=== PATIENT | male | born 1995 | race Caucasian/White ===

== ENCOUNTER 2018-02-21 22:38 | Emergency (ER) | payer OTHER ==
[2018-02-21 23:45] LABS: Absolute Lymphocytes (CBC) 1.9 K/uL (0.7-4.9); Absolute Monocytes 0.8 K/uL (0.1-1.3); Absolute Neutrophil 5.2 K/uL (1.8-8.0); Basophils % 0.4 % (0-1.3); Eosinophils % 1.8 % (0-4.4); Hematocrit 40.1 % (39.6-49.0); Lymphocytes % 23.4 % (15.3-44.8); MCV 92.2 fL (80-100); MPV 8.6 fL (7.6-11.3); Monocytes % 9.8 % (3.3-12.3); RBC Red Blood Cell Count 4.35 M/uL (4.33-5.43)
[2018-02-21] MEDS ORDERED: PROMETHAZINE 25 MG/ML VIAL ONE (23:46)
[2018-02-21] MEDS ORDERED: NA CHLORIDE 0.9% 1,000 ML ONE (23:46)
[2018-02-21] MEDS ORDERED: FAMOTIDINE 20 MG/2 ML VIAL IV ONE (23:46)
[2018-02-22 00:09] LABS: Albumin 4.1 g/dL (3.4-5.0); Bilirubin Direct 0.1 mg/dL (0-0.2); Bilirubin Total 0.3 mg/dL (0.2-1.0); Potassium 3.2 mmol/L (3.5-5.1); T3 Free 2.14 pg/mL (2.18-3.98); Thyroid Stimulating Hormone 3.55 uIU/mL (0.360-3.740)
[2018-02-22] MEDS ORDERED: HYDROCORTISONE SUC 100 MG INJ ONE (00:23)
[2018-02-22] MEDS ORDERED: POTASSIUM 25 MEQ EFFERV TAB ONE (01:17)
[2018-02-22] MEDS ORDERED: D5 0.9 NS 1,000 ML IV ONE ×2 (01:17→02:14)
[2018-02-22 01:52] LABS: Urine Blood NEGATIVE (NEG); Urine Glucose NEGATIVE (NEG); Urine Protein NEGATIVE (NEG); Urine pH 7.5 (5.0-7.0)
--- NOTE | 2018-02-22 01:53 | ER ---
Nurse's Notes [facility] Name: Ronald Caicedo Age: 22 yrs Sex: Male : 1995 Arrival Date: 02/21/2018 Time: 22:40 Bed 25 Private MD: Lizzie Doran Diagnosis: Nausea and vomiting-Intractable;Adrenal Insufficiency;Weakness-General Presentation: 02/21 22:54 Presenting complaint: Mother states: "he has a an extensive medical history, he has kr2 adrenal insufficiency and today has been vomiting, can't keep anything down, no fever, sore throat for about a week. His creatinine last week was higher than usual. Its normal for his heart rate to be in the 40's". Transition of care: patient was not received from another setting of care. Onset of symptoms was February 21, 2018. Risk Assessment: Do you want to hurt yourself or someone else? Patient reports no desire to harm self or others. Initial Sepsis Screen: Does the patient meet any 2 criteria? No. Patient's initial sepsis screen is negative. Does the patient have a suspected source of infection? No. Patient's initial sepsis screen is negative. Care prior to arrival: Mother states, "I gave him his cortisone like he is supposed to get". 22:54 Method Of Arrival: Ambulatory [facility] 22:54 Acuity: KEMI 3 kr2 Triage Assessment: 23:05 General: Appears in no apparent distress. comfortable, well groomed, well developed, kr2 Behavior is calm, cooperative, appropriate for age. Pain: Denies pain. EENT: Oral mucosa is moist. Neuro: Level of Consciousness is awake, alert, obeys commands, Oriented to person, place, time, situation. Cardiovascular: Capillary refill < 3 seconds in bilateral fingers Patient's skin is warm and dry. Respiratory: Airway is patent Respiratory effort is even, unlabored, Respiratory pattern is regular, symmetrical. GI: Abdomen is flat, non-distended, Bowel sounds present X 4 quads. Abd is soft and non tender X 4 quads. Reports nausea, vomiting, Patient currently denies diarrhea. : Denies burning with urination. Derm: Skin is intact, is healthy with good turgor, Skin is pink, warm \\T\\ dry. Musculoskeletal: Circulation, motion, and sensation intact. Historical: - Allergies: 23:02 Inderal; kr2 23:02 Klonopin; kr2 23:02 Zofran; kr2 - Home Meds: 23:02 Lamictal Oral [Active]; Whitmer Carbonate Oral [Active]; Diamox Sequels Oral [Active]; kr2 levothyroxine 125 mcg tab 1 tab once daily [Active]; Topamax Oral [Active]; Intuniv ER oral oral [Active]; Xenazine oral oral [Active]; primidone Oral [Active]; Cortisone Acetate Oral [Active]; - PMHx: 23:02 adrenal insufficiency; epilepsy; Hypothyroidism; Bipolar disorder; Left ventricular kr2 hypertrophy; Heart Murmur; Selective IgA; Renal injury; - PSHx: 23:02 Ear Tubes; kr2 - Immunization history:: Adult Immunizations up to date. - Social history:: Smoking status: Patient/guardian denies using tobacco. - Ebola Screening: : No symptoms or risks identified at this time. Screenin:05 Abuse screen: Denies threats or abuse. Denies injuries from another. Nutritional kr2 screening: No deficits noted. Tuberculosis screening: No symptoms or risk factors identified. Fall Risk None identified. Assessment: 02/22 00:03 Reassessment: See triage assessment. GI: Abdomen is flat, non-distended, Bowel sounds kr2 present X 4 quads. Abd is soft and non tender X 4 quads. Reports nausea, vomiting, Patient currently denies diarrhea. 01:00 General: Appears uncomfortable, slender, Behavior is calm, cooperative, appropriate for fc age, quiet. Pain: Denies pain. Neuro: Level of Consciousness is awake, alert, obeys commands, Oriented to person, place, time, situation. Cardiovascular: No deficits noted. Rhythm is sinus bradycardia with PACs. Respiratory: No deficits noted. GI: Abdomen is flat, non-distended, Bowel sounds present X 4 quads. Abd is soft and non tender X 4 quads. Reports nausea and vomiting upon arrival but it has gotten better. : No deficits noted. EENT: No deficits noted. Derm: Skin is pink, warm \\T\\ dry. Musculoskeletal: Circulation, motion, and sensation intact. Capillary refill < 3 seconds, Range of motion: intact in all extremities. 01:30 Reassessment: No changes from previously documented assessment. Patient and/or family fc updated on plan of care and expected duration. Pain level reassessed. Patient is alert, oriented x 3, equal unlabored respirations, skin warm/dry/pink. Mother notified of provider attempting to transfer pt to [facility]. 02:15 Reassessment: No changes from previously documented assessment. Patient and/or family fc updated on plan of care and expected duration. Pain level reassessed. Patient is alert, oriented x 3, equal unlabored respirations, skin warm/dry/pink. Pt is awaiting ambulance for transfer to [facility]. 02:30 General: Appears comfortable, Behavior is calm, cooperative, quiet. Pain: Denies pain. fc Neuro: Level of Consciousness is awake, alert, obeys commands, Oriented to person, place, time, situation, Medical Affairs Director are equal bilaterally Moves all extremities. Full function Pt states that he is weak overall at this time. Gait is unsteady, which mother states is normal for pt. Speech is normal, Facial symmetry appears normal, Reports weakness overall. Cardiovascular: No deficits noted. Denies chest pain, shortness of breath. Respiratory: Breath sounds are clear bilaterally. Denies cough, shortness of breath. GI: Abdomen is flat, non-distended, Patient currently denies abdominal pain, nausea, vomiting. : No deficits noted. EENT: No deficits noted. Derm: Skin is pink, warm \\T\\ dry. Musculoskeletal: Circulation, motion, and sensation intact. Capillary refill < 3 seconds, Range of motion: intact in all extremities. 02:52 Reassessment: No changes from previously documented assessment. Patient and/or family fc updated on plan of care and expected duration. Pain level reassessed. Patient is alert, oriented x 3, equal unlabored respirations, skin warm/dry/pink. Mother at bedside. Awaiting EMS for transport. 03:20 Reassessment: [facility] here to transport pt. Report given to Clarissa and pt loaded to their stretcher. Vital Signs: 02/21 23:02 BP 117 / 75; Pulse 44; Resp 18; Temp 98.7; Pulse Ox 97% ; Weight 77.11 kg; Height 6 ft. kr2 (182.88 cm); Pain 0/10; 02/22 00:04 BP 110 / 63; Pulse 51; Resp 18; Pulse Ox 100% ; kr2 01:00 BP 113 / 65; Pulse 71; Resp 18; Pulse Ox 100% on R/A; Pain 0/10; fc 01:39 BP 118 / 65; Pulse 65; Resp 18; Temp 98.0(O); Pulse Ox 100% on R/A; Pain 0/10; fc 02:15 BP 106 / 59; Pulse 50; Resp 20; Temp 98.0(O); Pulse Ox 100% on R/A; Pain 0/10; fc 03:00 BP 108 / 63; Pulse 50; Resp 18; Temp 97.9(O); Pulse Ox 99% on R/A; Pain 0/10; fc 02/21 23:02 Body Mass Index 23.06 (77.11 kg, 182.88 cm) kr2 ED Course: 02/21 22:40 Patient arrived in ED. al2 22:42 Lizzie Doran MD is Private Physician. al2 22:54 Dalila Carmichael, FUNMI is Primary Nurse. kr2 22:57 Triage completed. kr2 23:01 John Evans PA is PHCP. cp 23:01 John Gil MD is Attending Physician. cp 23:07 Arm band placed on left wrist. kr2 23:07 Patient has correct armband on for positive identification. Bed in low position. Call kr2 light in reach. Side rails up X 1. Adult w/ patient. residential monitor on. Pulse ox on. NIBP on. Door closed. Warm blanket given. Head of bed elevated. 23:15 Inserted saline lock: 20 gauge in left antecubital area, using aseptic technique. Blood kr2 collected. 02/22 01:57 No provider procedures requiring assistance completed. Patient transferred, IV remains fc in place. Administered Medications: 02/21 23:40 Drug: Phenergan 25 mg Route: IVP; Site: left antecubital; kr2 02/22 00:16 Follow up: Response: No adverse reaction kr2 02/21 23:40 Drug: NS 0.9% 1000 ml Route: IV; Rate: 1 bolus; Site: left antecubital; kr2 02/22 01:05 Follow up: Response: No adverse reaction; No change in condition; IV Status: Completed fc infusion; IV Intake: 1000ml 02/21 23:40 Drug: Pepcid 20 mg Route: IVP; Site: left antecubital; kr2 02/22 00:16 Follow up: Response: No adverse reaction kr2 00:22 Drug: Solu-CORTEF 100 mg Route: IVP; Site: left antecubital; fc 01:04 Follow up: Response: No adverse reaction; No change in condition fc 01:20 Drug: Potassium Effervescent Tablet 50 mEq Route: PO; bb 01:41 Follow up: Response: No adverse reaction; No change in condition fc 01:20 Drug: D5-NS 1000 ml Route: IV; Rate: bolus; Site: left antecubital; bb 03:19 Follow up: Response: No adverse reaction; No change in condition; IV Status: Infusion fc continued upon transfer; IV Intake: 1125ml Intake: 01:05 IV: 1000ml; Total: 1000ml. fc 03:19 IV: 1125ml; Total: 2125ml. Outcome: 01:53 ER care complete, transfer ordered by MD. 02:00 Transferred by ground EMS to [facility], Transfer form completed. X-rays fc sent w/ patient. Note: report given to Beckie CHOUDHARY in ER 02:00 Condition: good 02:00 Discharge instructions given to patient, family, Instructed on the need for transfer, Demonstrated understanding of instructions. 03:31 Patient left the ED. Signatures: Adrianne Osei RN RN Stacey Short RN RN bb John Evans PA PA Dalila Carmichael RN RN kr2 Ameena Hilton2 Corrections: (The following items were deleted from the chart) 02/21 23:05 22:54 Presenting complaint: Mother states: "he has a an extensive medical history, he kr2 has adrenal insufficiency and today has been vomiting, can't keep anything down, no fever, sore throat for about a week. His creatinine last week was higher than usual" kr2 02/22 00:14 00:04 BP 100 / 55; Pulse 51bpm; Resp 18bpm; Pulse Ox 100%; kr2 kr2
--- NOTE | 2018-02-22 01:53 | EDPHYS ---
Physician Documentation [facility] Name: Ronald Caicedo Age: 22 yrs Sex: Male : 1995 Arrival Date: 02/21/2018 Time: 22:40 Bed 25 Private MD: Lizzie Doran ED Physician John Gil HPI: 02/21 23:20 This 22 yrs old Male presents to ER via Ambulatory with complaints of cp Vomiting, General Weakness, ADRENALINE DIFF. 23:20 The patient presents to the emergency department with nausea, that is moderate, cp vomiting, that is continuous. 23:20 Onset: The symptoms/episode began/occurred today. Possible causes: unknown. Associated cp signs and symptoms: Pertinent negatives: abdominal pain, constipation, diarrhea, fever, GI bleeding, chest pain. Severity of symptoms: in the emergency department the symptoms are unchanged despite home interventions. Historical: - Allergies: 23:02 Inderal; kr2 23:02 Klonopin; kr2 23:02 Zofran; kr2 - Home Meds: 23:02 Lamictal Oral [Active]; Berino Carbonate Oral [Active]; Diamox Sequels Oral [Active]; kr2 levothyroxine 125 mcg tab 1 tab once daily [Active]; Topamax Oral [Active]; Intuniv ER oral oral [Active]; Xenazine oral oral [Active]; primidone Oral [Active]; Cortisone Acetate Oral [Active]; - PMHx: 23:02 adrenal insufficiency; epilepsy; Hypothyroidism; Bipolar disorder; Left ventricular kr2 hypertrophy; Heart Murmur; Selective IgA; Renal injury; - PSHx: 23:02 Ear Tubes; kr2 - Immunization history:: Adult Immunizations up to date. - Social history:: Smoking status: Patient/guardian denies using tobacco. - Ebola Screening: : No symptoms or risks identified at this time. ROS: 23:20 Constitutional: Positive for poor PO intake, Negative for body aches, chills, fever. cp 23:20 Eyes: Negative for injury, pain, redness, and discharge. cp 23:20 ENT: Negative for drainage from ear(s), ear pain, sore throat, difficulty swallowing, difficulty handling secretions. 23:20 Cardiovascular: Negative for chest pain, edema, palpitations. 23:20 Respiratory: Negative for cough, shortness of breath, wheezing. 23:20 Abdomen/GI: Positive for nausea, vomiting, Negative for abdominal pain, diarrhea, constipation, hematemesis, black/tarry stool, rectal bleeding. 23:20 : Negative for urinary symptoms. 23:20 Skin: Negative for cellulitis, rash. 23:20 Neuro: Positive for general weakness, Negative for altered mental status, headache, seizure activity. 23:20 All other systems are negative. Exam: 23:27 Constitutional: The patient appears in no acute distress, alert, awake, non-toxic, well cp developed, well nourished. 23:27 Head/Face: Normocephalic, atraumatic. Eyes: Pupils equal round and reactive to light, cp extra-ocular motions intact. Lids and lashes normal. Conjunctiva and sclera are non-icteric and not injected. Cornea within normal limits. Periorbital areas with no swelling, redness, or edema. ENT: Nares patent. No nasal discharge, no septal abnormalities noted. Tympanic membranes are normal and external auditory canals are clear. Oropharynx with no redness, swelling, or masses, exudates, or evidence of obstruction, uvula midline. Mucous membranes moist. Neck: Trachea midline, no thyromegaly or masses palpated, and no cervical lymphadenopathy. Supple, full range of motion without nuchal rigidity, or vertebral point tenderness. No Meningismus. Chest/axilla: Normal chest wall appearance and motion. Nontender with no deformity. No lesions are appreciated. 23:27 Cardiovascular: Rate: bradycardic, Rhythm: regular, Edema: is not appreciated, JVD: is not appreciated. 23:27 Respiratory: the patient does not display signs of respiratory distress, Respirations: normal, no use of accessory muscles, no retractions, no splinting, no tachypnea, labored breathing, is not present, Breath sounds: are clear throughout, no decreased breath sounds, no stridor, no wheezing. 23:27 Abdomen/GI: Inspection: abdomen appears normal, Bowel sounds: active, all quadrants, Palpation: abdomen is soft and non-tender, in all quadrants, rebound tenderness, is not appreciated, voluntary guarding, is not appreciated, involuntary guarding, is not appreciated. 23:27 Back: pain, is absent, ROM is normal. 23:27 Skin: cellulitis, is not appreciated, no rash present. 23:27 Neuro: Orientation: to person, place \T\ time. Mentation: able to follow commands, slow to respond, Cerebellar function: is grossly normal, Motor: moves all fours, strength is normal, Sensation: is normal. 23:30 ECG was reviewed by the Attending Physician. Vital Signs: 23:02 BP 117 / 75; Pulse 44; Resp 18; Temp 98.7; Pulse Ox 97% ; Weight 77.11 kg; Height 6 ft. kr2 (182.88 cm); Pain 0/10; 02/22 00:04 BP 110 / 63; Pulse 51; Resp 18; Pulse Ox 100% ; kr2 01:00 BP 113 / 65; Pulse 71; Resp 18; Pulse Ox 100% on R/A; Pain 0/10; fc 01:39 BP 118 / 65; Pulse 65; Resp 18; Temp 98.0(O); Pulse Ox 100% on R/A; Pain 0/10; fc 02:15 BP 106 / 59; Pulse 50; Resp 20; Temp 98.0(O); Pulse Ox 100% on R/A; Pain 0/10; fc 03:00 BP 108 / 63; Pulse 50; Resp 18; Temp 97.9(O); Pulse Ox 99% on R/A; Pain 0/10; fc 02/21 23:02 Body Mass Index 23.06 (77.11 kg, 182.88 cm) kr2 MDM: 02/21 23:01 Patient medically screened. 02/22 00:00 Differential diagnosis: gastritis, appendicitis, viral gastroenteritis, cp gastroenteritis, dehydration. 01:00 Data reviewed: vital signs, nurses notes, lab test result(s), EKG, and as a result, [facility] will transfer patient. 01:00 Test interpretation: by ED physician or midlevel provider: ECG. 02/21 23:17 Order name: Basic Metabolic Panel; Complete Time: 00:14 02/22 01:26 Interpretation: Normal except: K 3.2; CL 110; GFR 70; CA 8.4. 02/21 23:17 Order name: CBC with Diff; Complete Time: 00:14 02/21 23:17 Order name: Creatinine for Radiology; Complete Time: 00:14 02/21 23:17 Order name: Hepatic Function; Complete Time: 00:14 02/22 01:39 Interpretation: AST 14. cp 02/21 23:17 Order name: Lipase; Complete Time: 00:14 cp 02/21 23:17 Order name: Berino; Complete Time: 00:17 cp 02/21 23:17 Order name: TSH; Complete Time: 00:14 cp 02/21 23:17 Order name: T3 Free; Complete Time: 00:14 cp 02/22 01:36 Order name: Urine Dipstick--Ancillary (enter results); Complete Time: 01:55 mw2 02/22 01:55 Interpretation: Normal except: UPH 7.5. cp 02/21 23:17 Order name: IV Saline Lock; Complete Time: 00:13 cp 02/21 23:17 Order name: Labs collected and sent; Complete Time: 00:13 cp 02/21 23:17 Order name: EKG; Complete Time: 23:18 cp 02/21 23:17 Order name: EKG - Nurse/Tech; Complete Time: 23:27 cp 02/21 23:17 Order name: Urine Dipstick-Ancillary (obtain specimen); Complete Time: 01:42 cp EC/11 23:30 Rate is 45 beats/min. Rhythm is regular. TN interval is prolonged at 212 msec. QRS cp interval is prolonged at 116 msec. QT interval is normal. Interpreted by me. Reviewed by me. Administered Medications: 23:40 Drug: Phenergan 25 mg Route: IVP; Site: left antecubital; 2 02/22 00:16 Follow up: Response: No adverse reaction [facility] 02/21 23:40 Drug: NS 0.9% 1000 ml Route: IV; Rate: 1 bolus; Site: left antecubital; kr2 02/22 01:05 Follow up: Response: No adverse reaction; No change in condition; IV Status: Completed infusion; IV Intake: 1000ml 02/21 23:40 Drug: Pepcid 20 mg Route: IVP; Site: left antecubital; kr2 02/22 00:16 Follow up: Response: No adverse reaction 2 00:22 Drug: Solu-CORTEF 100 mg Route: IVP; Site: left antecubital; fc 01:04 Follow up: Response: No adverse reaction; No change in condition 01:20 Drug: Potassium Effervescent Tablet 50 mEq Route: PO; bb 01:41 Follow up: Response: No adverse reaction; No change in condition fc 01:20 Drug: D5-NS 1000 ml Route: IV; Rate: bolus; Site: left antecubital; bb 03:19 Follow up: Response: No adverse reaction; No change in condition; IV Status: Infusion fc continued upon transfer; IV Intake: 1125ml Disposition: 09:39 Co-signature as Attending Physician, John Gil MD I agree with the assessment and [facility] plan of care. Disposition: 02/22/18 01:53 Transfer ordered to [facility]. Diagnosis are Nausea and vomiting - Intractable, Adrenal Insufficiency, Weakness - General. - Reason for transfer: Higher level of care. - Accepting physician is DR Keenan. - Condition is Stable. - Problem is new. - Symptoms have improved. Signatures: Dispatcher [employer] [facility] John Gil MD MD cha Chretien, Felicia, RN RN fc Ballard, Brenda, RN RN bb Page, Corey, PA PA Dalila Carmichael RN RN kr2 Corrections: (The following items were deleted from the chart) 01:15 01:13 ECG was reviewed by the Attending Physician. [facility] 01:15 01:13 Rate is 45 beats/min. Rhythm is regular. TN interval is prolonged at 212 msec. cp QRS interval is prolonged at 116 msec. QT interval is normal. Interpreted by me. Reviewed by me. cp 01:26 00:17 Normal except: K 3.2; CL 110; GFR 70. cp 01:53 00:17 Influenza Screen (A \T\ B)+BA.LAB.BRZ ordered. [facility] 01:53 01:53 02/22/2018 01:53 Transfer ordered to [facility]. cp Diagnosis is Nausea and vomiting - Intractable; Adrenal Insufficiency. Reason for transfer: Higher level of care. Accepting physician is DR Keenan. Condition is Stable. Problem is new. Symptoms have improved. cp 03:31 01:53 02/22/2018 01:53 Transfer ordered to [facility]. fc Diagnosis is Nausea and vomiting - Intractable; Adrenal Insufficiency; Weakness - General. Reason for transfer: Higher level of care. Accepting physician is DR Keenan. Condition is Stable. Problem is new. Symptoms have improved. cp
[2018-02-22 03:42] VITALS: BP 108/63; TEMP 97.9; O2SAT 99
--- NOTE | 2018-02-22 08:12 | EKG ---
Test Date: 2018-02-21 Test Time: 23:24:46 Waiter/Waitress Economy Class: HARJIT MEASUREMENT RESULTS: Intervals: Rate: 45 GA: 212 QRSD: 116 QT: 466 QTc: 403 [place]: P: 39 GA: 212 QRS: 38 T: 62 INTERPRETIVE STATEMENTS: Sinus bradycardia with sinus arrhythmia with 1st degree AV block Incomplete right bundle branch block Borderline ECG Compared to ECG 09/08/2016 15:08:16 First degree AV block now present Incomplete right bundle-branch block now present Electronically Signed On 02-22-18 08:11:32 CDT by Mason Chong
== END 2018-02-22 03:31 | disposition designated cancer center or children's hospital (05) ==
LOC: ER 22:38
DX: E27.40 Unspecified adrenocortical insufficiency (principal); R53.1 Weakness; E03.9 Hypothyroidism, unspecified; F31.9 Bipolar disorder, unspecified; R01.1 Cardiac murmur, unspecified; G40.909 Epilepsy, unspecified, not intractable, without status epilepticus; Z88.8 Allergy status to other drugs, medicaments and biological substances
CPT/HCPCS: 36415; 80048; 80076; 80178; 81003; 83690; 84443; 84481; 85025; 93005; 96361; 96374; 96375; 99285; J1720; J2550; J7030

== ENCOUNTER 2018-06-08 00:20 | Emergency (ER) | payer OTHER ==
--- OUTSIDE RECORDS SUMMARY | 2018-06-08 00:23 | XMS REPORT ---
:1995 [facility] Address [address] [place] [address] [address] [place] [address] Care Team Providers Name Role Phone Unavailable Unavailable Unavailable Problems This patient has no known problems. Allergies, Adverse Reactions, Alerts This patient has no known allergies or adverse reactions. Medications This patient has no known medications.
[2018-06-08] MEDS ORDERED: NA CHLORIDE 0.9% 1,000 ML ONE (01:06)
[2018-06-08] MEDS ORDERED: PROMETHAZINE 25 MG/ML VIAL ONE (01:06)
[2018-06-08 01:23] LABS: Absolute Lymphocytes (CBC) 1.9 K/uL (0.7-4.9); Absolute Monocytes 0.6 K/uL (0.1-1.3); Absolute Neutrophil 3.9 K/uL (1.8-8.0); Basophils % 0.7 % (0-1.3); Hematocrit 41.9 % (39.6-49.0); Lymphocytes % 28.6 % (15.3-44.8); MPV 8.9 fL (7.6-11.3); Monocytes % 9.6 % (3.3-12.3); RBC Red Blood Cell Count 4.51 M/uL (4.33-5.43)
[2018-06-08 01:33] LABS: ALT/SGPT 27 U/L (12-78); AST/SGOT 16 U/L (15-37); Albumin 3.7 g/dL (3.4-5.0); Alkaline Phosphatase 94 U/L (45-117); BUN Blood Urea Nitrogen 13 mg/dL (7-18); Bicarbonate 23 mmol/L (21-32); Bilirubin Direct < 0.1 mg/dL (0-0.2); Bilirubin Total 0.1 mg/dL (0.2-1.0); Glucose Level 97 mg/dL (74-106); Lipase 118 U/L (73-393); Potassium 3.7 mmol/L (3.5-5.1); Protein, Total 6.8 g/dL (6.4-8.2); Sodium Level 142 mmol/L (136-145)
[2018-06-08 02:19] LABS: Urine Blood 2+ (NEG); Urine Glucose NEGATIVE (NEG); Urine Protein TRACE (NEG); Urine Specific Gravity 1.015 (1.005-1.030)
[2018-06-08 02:25] LABS: Urine Bacteria <20 /HPF (NONE SEEN); Urine Culture Reflex Order REFLEXED; Urine RBC <5 /HPF (NONE SEEN)
--- NOTE | 2018-06-08 02:39 | ER ---
Nurse's Notes [facility] Name: Ronald Caicedo Age: 23 yrs Sex: Male : 1995 Arrival Date: 06/08/2018 Time: 00:25 Bed 18 Private MD: Diagnosis: Urinary tract infection, site not specified;Low back pain;Constipation Presentation: 06/08 00:27 Presenting complaint: Mother states: He started having kidney pains about two days ago. 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 Tonight he woke up in tears saying the pain was worse. 00:27 Transition of care: patient was not received from another setting of care. Onset of jb4 symptoms was June 06, 2018. Risk Assessment: Do you want to hurt yourself or someone else? Patient reports no desire to harm self or others. Initial Sepsis Screen: Does the patient meet any 2 criteria? No. Patient's initial sepsis screen is negative. Does the patient have a suspected source of infection? No. Patient's initial sepsis screen is negative. Care prior to arrival: None. 00:27 Method Of Arrival: Ambulatory jb4 00:27 Acuity: KEMI 3 jb4 Triage Assessment: 00:27 General: Appears in no apparent distress. uncomfortable, Behavior is calm, cooperative, jb4 appropriate for age. Pain: Complains of pain in posterior aspect of right lateral abdomen Pain does not radiate. Pain currently is 9 out of 10 on a pain scale. EENT: No signs and/or symptoms were reported regarding the EENT system. Neuro: Level of Consciousness is awake, alert, obeys commands, Oriented to person, place, time, situation, Reports dizziness, since For the past 5 days after his gabapentin dose was changed. Change in gate after medication dosage change.. Cardiovascular: Patient's skin is warm and dry. Respiratory: Airway is patent Respiratory effort is even, unlabored, Respiratory pattern is regular, symmetrical. GI: Reports nausea. : Reports pain in left in lower back Denies burning with urination, discharge, pain with urination urinary frequency. Derm: Skin is intact, Skin is pink, warm \T\ dry. Musculoskeletal: Circulation, motion, and sensation intact. Range of motion: intact in all extremities. Historical: - Allergies: 00:27 Inderal; jb4 00:27 Klonopin; jb4 00:27 Zofran; jb4 00:27 BENZODIAZEPINES; jb4 - Home Meds: 00:27 levothyroxine 125 mcg tab 1 tab once daily [Active]; Cortisone Acetate Oral [Active]; jb4 Diamox Sequels Oral [Active]; Intuniv ER Oral [Active]; Lamictal Oral [Active]; Xenazine Oral [Active]; Topamax Oral [Active]; [place] Carbonate Oral [Active]; Primidone Oral [Active]; - PMHx: 00:27 Heart Murmur; epilepsy; Selective IgA; Renal injury; Left ventricular hypertrophy; jb4 Hypothyroidism; Bipolar disorder; adrenal insufficiency; CYP2D6 deficiency; - PSHx: 00:27 Ear Tubes; jb4 - Immunization history:: Adult Immunizations up to date, Flu vaccine is not up to date. - Social history:: Smoking status: Patient/guardian denies using tobacco, Patient/guardian denies using alcohol. - Ebola Screening: : No symptoms or risks identified at this time. Screenin:27 Abuse screen: Denies threats or abuse. Nutritional screening: No deficits noted. jb4 Tuberculosis screening: No symptoms or risk factors identified. Fall Risk Secondary diagnosis (15 points) impaired mobility, Total [place] Fall Scale indicates No Risk (0-24 pts). Assessment: 00:27 General: see triage assessment. jb4 01:30 Reassessment: Patient appears in no apparent distress at this time. Patient and/or jb4 family updated on plan of care and expected duration. Pain level reassessed. Patient is alert, oriented x 3, equal unlabored respirations, skin warm/dry/pink. 02:26 Reassessment: Patient appears in no apparent distress at this time. Patient and/or jb4 family updated on plan of care and expected duration. Pain level reassessed. Pt is resting in bed with mother at the bedside. Respirations are even and unlabored. Vital Signs: 00:27 Weight 78.47 kg (R); Height 6 ft. 0 in. (182.88 cm); Pain 9/10; jb4 00:31 BP 131 / 92 LA Sitting (auto/reg); Pulse 77 MON; Resp 16 S; Temp 98.6(O); Pulse Ox 100% ds4 on R/A; 02:26 BP 108 / 71; Pulse 68; Resp 12; Pulse Ox 97% on R/A; jb4 00:27 Body Mass Index 23.46 (78.47 kg, 182.88 cm) jb4 ED Course: 00:25 Patient arrived in ED. es 00:27 Pascual Deleon, RN is Primary Nurse. jb4 00:27 Arm band placed on left wrist. jb4 00:27 Patient has correct armband on for positive identification. Bed in low position. Call jb4 light in reach. Side rails up X 1. Adult w/ patient. Pulse ox on. NIBP on. 00:28 John Evans PA is PHCP. cp 00:28 Tanner Hernadez MD is Attending Physician. cp 00:40 Triage completed. jb4 00:55 Inserted saline lock: 20 gauge in left antecubital area, using aseptic technique. Blood ds4 collected. 01:12 Urine Microscopic Only Sent. ds4 01:13 Basic Metabolic Panel Sent. ds4 01:13 [place] Sent. ds4 01:14 CBC with Diff Sent. ds4 01:14 Creatinine for Radiology Sent. ds4 01:14 Hepatic Function Sent. ds4 01:14 Lipase Sent. ds4 01:[address] via stretcher. kw1 01:50 CT Stone Protocol In Process Unspecified. EDMS 01:52 CT completed. Patient tolerated procedure well. Patient moved back from CT. kw1 02:54 No provider procedures requiring assistance completed. IV discontinued, intact, jb4 bleeding controlled, No redness/swelling at site. Administered Medications: 00:53 Not Given (Other Intervention Used): Zofran 4 mg IVP once; over 2 minutes jb4 01:05 Drug: NS 0.9% 1000 ml Route: IV; Rate: 1 bolus; Site: left antecubital; jb4 02:30 Follow up: Response: No adverse reaction; IV Status: Completed infusion jb4 01:08 Drug: Phenergan 12.5 mg Route: IVP; Site: left antecubital; jb4 01:15 Follow up: Response: No adverse reaction; Nausea is decreased jb4 02:36 Drug: Rocephin 1 grams {Note: Given IVP per pharmacy protocol.} Route: IV; Rate: bolus; jb4 Site: left antecubital; 02:38 Follow up: Response: No adverse reaction; IV Status: Completed infusion jb4 Outcome: 02:38 Discharge ordered by . cp 02:54 Discharged to home ambulatory, with family. jb4 02:54 Condition: stable 02:54 Discharge instructions given to patient, turf keeper, Instructed on discharge instructions, follow up and referral plans. medication usage, Demonstrated understanding of instructions, follow-up care, medications, Prescriptions given X 3. 02:54 Patient left the ED. jb4 Signatures: Dispatcher [employer] Mandie Dorsey Donovan ds4 John Evans PA PA cp Bryson, James, RN RN jb4 Janine Lucero kw1 Corrections: (The following items were deleted from the chart) 00:51 00:27 GI: No signs and/or symptoms were reported involving the gastrointestinal system. jb4 jb4
--- NOTE | 2018-06-08 02:39 | EDPHYS ---
Physician Documentation [facility] Name: Ronald Caicedo Age: 23 yrs Sex: Male : 1995 Arrival Date: 06/08/2018 Time: 00:25 Bed 18 Private MD: ED Physician Tanner Hernadez HPI: 06/08 00:40 This 23 yrs old Male presents to ER via Ambulatory with complaints of Nausea, cp Kidney pain. 00:40 The patient complains of pain in the left flank. The pain radiates to the left upper cp abdomen. Onset: The symptoms/episode began/occurred 2 day(s) ago. Associated signs and symptoms: Pertinent positives: nausea. Historical: - Allergies: 00:27 Inderal; jb4 00:27 Klonopin; jb4 00:27 Zofran; jb4 00:27 BENZODIAZEPINES; jb4 - Home Meds: 00:27 levothyroxine 125 mcg tab 1 tab once daily [Active]; Cortisone Acetate Oral [Active]; jb4 Diamox Sequels Oral [Active]; Intuniv ER Oral [Active]; Lamictal Oral [Active]; Xenazine Oral [Active]; Topamax Oral [Active]; [place] Carbonate Oral [Active]; Primidone Oral [Active]; - PMHx: 00:27 Heart Murmur; epilepsy; Selective IgA; Renal injury; Left ventricular hypertrophy; jb4 Hypothyroidism; Bipolar disorder; adrenal insufficiency; CYP2D6 deficiency; - PSHx: 00:27 Ear Tubes; jb4 - Immunization history:: Adult Immunizations up to date, Flu vaccine is not up to date. - Social history:: Smoking status: Patient/guardian denies using tobacco, Patient/guardian denies using alcohol. - Ebola Screening: : No symptoms or risks identified at this time. ROS: 00:43 ENT: Negative for injury, pain, and discharge. cp 00:43 Constitutional: Negative for body aches, chills, fever, poor PO intake. 00:43 Cardiovascular: Negative for chest pain, palpitations. 00:43 Respiratory: Negative for cough, shortness of breath, wheezing. 00:43 Abdomen/GI: Positive for abdominal pain, nausea, Negative for vomiting, diarrhea, constipation. 00:43 Back: Positive for flank pain, on the left. 00:43 : Negative for urinary symptoms. 00:43 Skin: Negative for cellulitis, rash. 00:43 Neuro: Negative for altered mental status, headache, weakness. 00:43 All other systems are negative. Exam: 00:48 Constitutional: The patient appears in no acute distress, alert, awake, non-toxic, well cp developed, well nourished, uncomfortable. 00:48 Head/Face: Normocephalic, atraumatic. cp 00:48 Eyes: Periorbital structures: appear normal, Conjunctiva: normal, no exudate, no injection, Sclera: no appreciated abnormality, Lids and lashes: appear normal, bilaterally. 00:48 ENT: External ear(s): are unremarkable, Nose: is normal, Mouth: is normal, Posterior pharynx: is normal, airway is patent. 00:48 Neck: ROM/movement: is normal, is supple, without pain, no range of motions limitations, no nuchal rigidity. 00:48 Chest/axilla: Inspection: normal, Palpation: is normal, no crepitus, no tenderness. 00:48 Cardiovascular: Rate: normal, Rhythm: regular. 00:48 Respiratory: the patient does not display signs of respiratory distress, Respirations: normal, no use of accessory muscles, no retractions, no splinting, no tachypnea, labored breathing, is not present, Breath sounds: are clear throughout, no decreased breath sounds, no stridor, no wheezing. 00:48 Abdomen/GI: Inspection: abdomen appears normal, Bowel sounds: active, all quadrants, Palpation: soft, in all quadrants, mild abdominal tenderness, in the left upper quadrant, rebound tenderness, is not appreciated, involuntary guarding, is not appreciated. 00:48 Abdomen/GI: Palpation: moderate abdominal tenderness, in the posterior aspect of left lateral abdomen. 00:48 Back: pain, that is mild, of the left mid back, ROM is normal. 00:48 Musculoskeletal/extremity: Exam is negative for decreased range of motion, deformity, edema, injury. 00:48 Skin: cellulitis, is not appreciated, no rash present. 00:48 Neuro: Orientation: to person, place \T\ time. Mentation: is normal, Cerebellar function: is grossly normal, Motor: moves all fours, strength is normal, Sensation: is normal. Vital Signs: 00:27 Weight 78.47 kg (R); Height 6 ft. 0 in. (182.88 cm); Pain 9/10; jb4 00:31 BP 131 / 92 LA Sitting (auto/reg); Pulse 77 MON; Resp 16 S; Temp 98.6(O); Pulse Ox 100% ds4 on R/A; 02:26 BP 108 / 71; Pulse 68; Resp 12; Pulse Ox 97% on R/A; jb4 00:27 Body Mass Index 23.46 (78.47 kg, 182.88 cm) jb4 MDM: 00:28 Patient medically screened. cp 01:00 Differential diagnosis: nephrolithiasis, pyelonephritis, UTI, pancreatitis. cp 02:36 Response to treatment: the patient's symptoms have markedly improved after treatment. cp ED course: VSS. Patient sleeping in exam room. Mother reports patient took first dose of macrobid last night. 02:37 Data reviewed: vital signs, nurses notes, lab test result(s), radiologic studies, CT cp scan, and as a result, I will discharge patient. Counseling: I had a detailed discussion with the patient and/or guardian regarding: the historical points, exam findings, and any diagnostic results supporting the discharge/admit diagnosis, lab results, radiology results, the need for outpatient follow up, a family practitioner, to return to the emergency department if symptoms worsen or persist or if there are any questions or concerns that arise at home. 06/08 00:43 Order name: Basic Metabolic Panel; Complete Time: 02:11 cp 06/08 02:11 Interpretation: Normal except: CL 112; GFR 80. cp 06/08 00:43 Order name: CBC with Diff; Complete Time: 02:11 cp 06/08 02:12 Interpretation: Reviewed. cp 06/08 00:43 Order name: Creatinine for Radiology; Complete Time: 02:11 cp 06/08 00:43 Order name: Hepatic Function; Complete Time: 02:11 cp 06/08 02:12 Interpretation: Normal except: BILIT 0.1. cp 06/08 00:43 Order name: Lipase; Complete Time: 02:11 cp 06/08 02:12 Interpretation: Within normal limits: LIP 118. cp 06/08 00:43 Order name: [place]; Complete Time: 02:11 cp 06/08 02:12 Interpretation: Within normal limits: LI 1.2. cp 06/08 00:43 Order name: Urine Microscopic Only; Complete Time: 02:30 06/08 02:30 Interpretation: Normal except: UWBC 5-10. 06/08 01:10 Order name: CT Stone Protocol 06/08 01:13 Order name: Urine Dipstick--Ancillary (enter results) ds4 06/08 01:14 Order name: Urine Dipstick-Ancillary; Complete Time: 02:30 EDMS 06/08 02:30 Interpretation: Normal except: UBLD 2+; UPH 8.0; UESTR TRACE. 06/08 02:27 Order name: Urine Culture EDID 06/08 00:43 Order name: IV Saline Lock; Complete Time: 01:04 06/08 00:43 Order name: Labs collected and sent; Complete Time: 01:04 06/08 00:43 Order name: Urine Dipstick-Ancillary (obtain specimen); Complete Time: 01:05 cp Administered Medications: 00:53 Not Given (Other Intervention Used): Zofran 4 mg IVP once; over 2 minutes jb4 01:05 Drug: NS 0.9% 1000 ml Route: IV; Rate: 1 bolus; Site: left antecubital; jb4 02:30 Follow up: Response: No adverse reaction; IV Status: Completed infusion jb4 01:08 Drug: Phenergan 12.5 mg Route: IVP; Site: left antecubital; jb4 01:15 Follow up: Response: No adverse reaction; Nausea is decreased jb4 02:36 Drug: Rocephin 1 grams {Note: Given IVP per pharmacy protocol.} Route: IV; Rate: bolus; 4 Site: left antecubital; 02:38 Follow up: Response: No adverse reaction; IV Status: Completed infusion jb4 Disposition: 03:31 Co-signature as Attending Physician, Tanner Hernadez MD. Disposition: 06/08/18 02:38 Discharged to Home. Impression: Urinary tract infection, site not specified, Low back pain, Constipation. - Condition is Stable. - Discharge Instructions: Back Pain, Adult, Constipation, Adult, Urinary Tract Infection, Adult. - Prescriptions for Cipro 500 mg Oral Tablet - take 1 tablet by ORAL route every 12 hours for 7 days; 14 tablet. Tylenol- Codeine #3 300-30 mg Oral Tablet - take 2 tablets by ORAL route every 8 hours As needed; 15 tablet. promethazine 25 mg Oral Tablet - take 1 tablet by ORAL route every 6 hours As needed; 20 tablet. Miralax 17 gram/dose Oral - take 1 packet by ORAL route once daily dilute powder in 8 ounces of water or juice; 15 packet. - Medication Reconciliation Form, Thank You Letter, Antibiotic Education, Prescription Opioid Use, SBAR form form. - Follow up: Private Physician; When: 2 - 3 days; Reason: Recheck today's complaints. - Problem is new. - Symptoms have improved. Signatures: Dispatcher [employer] EDMS John Evans PA PA cp Pascual Deleon RN RN jb4 Tanner Hernadez MD MD gs Corrections: (The following items were deleted from the chart) 02:42 02:38 06/08/2018 02:38 Discharged to Home. Impression: Urinary tract infection, site cp not specified; Low back pain. Condition is Stable. Forms are SBAR form, Medication Reconciliation Form, Thank You Letter, Antibiotic Education, Prescription Opioid Use. Follow up: Private Physician; When: 2 - 3 days; Reason: Recheck today's complaints. Problem is new. Symptoms have improved. cp 02:54 02:42 06/08/2018 02:38 Discharged to Home. Impression: Urinary tract infection, site jb4 not specified; Low back pain; Constipation. Condition is Stable. Discharge Instructions: Back Pain, Adult, Urinary Tract Infection, Adult. Prescriptions for Cipro 500 mg Oral Tablet - take 1 tablet by ORAL route every 12 hours for 7 days; 14 tablet, Tylenol-Codeine #3 300-30 mg Oral Tablet - take 2 tablets by ORAL route every 8 hours As needed; 15 tablet, promethazine 25 mg Oral Tablet - take 1 tablet by ORAL route every 6 hours As needed; 20 tablet. and Forms are SBAR form, Medication Reconciliation Form, Thank You Letter, Antibiotic Education, Prescription Opioid Use. Follow up: Private Physician; When: 2 - 3 days; Reason: Recheck today's complaints. Problem is new. Symptoms have improved. cp
[2018-06-08] MEDS ORDERED: CEFTRIAXONE/SWI 1gm 1 GM/10 ML SYR ONE (02:44)
[2018-06-08 03:04] VITALS: TEMP 98.6
[2018-06-08 03:06] VITALS: BP 108/71; O2SAT 97
--- NOTE | 2018-06-08 08:25 | RAD REPORT ---
EXAM DESCRIPTION: CT - Stone Protocol - 06/08/2018 6:09 am CLINICAL HISTORY: Severe abdominal pain and flank pain A preliminary report was provided at the time of the study and reviewed prior to final report. COMPARISON: None. TECHNIQUE: Axial 5 mm thick images were obtained without oral or IV contrast. The [id number] span s the entirety of the system partially obscuring uppermost abdomen and lung bases. All CT scans are performed using dose optimization technique as appropriate and may include automated exposure control or mA/KV adjustment according to patient size. FINDINGS: No hydronephrosis confirmed. Right kidney appears mildly edematous. There is a slight full ness of each ureter with questionable wall thickening. No measurable stranding along the fatty tissue s surrounding the ureters. No obstructing calculi are present. A 4 millimeter calcification is presen t posterior mid right kidney with a punctate 1-2 millimeter parenchymal or calyx calcification upper pole right kidney. No suspicious renal masses. Isodense masses and pyelonephritis are not excluded on a stone protocol CT scan. Urinary bladder wall appears relatively prominent for the amount of disten tion. No bladder wall thickening or mass. No bladder calculus. Prostate gland and seminal vesicles ar e within range of normal. No significant adrenal finding. Imaged portions of the liver, spleen and pancreas show no suspicious findings on non-contrast imaging . No gallbladder or biliary tree abnormality identified. No suspicious bowel findings. Retrocecal appendix is unremarkable. Patient does have large stool volu me filling but not dilating the colon. No hernia, mass or bulky lymphadenopathy noted. No free air, free fluid or inflammatory stranding. No significant bony abnormality. IMPRESSION: Mild prominence of the urinary bladder blandon. Cystitis is possible and needs correlation with clinical presentation and UA abnormalities. Subtle edema of the right kidney and subtle thickening of the bilateral ureter blandon. There is no obs tructing calculus. Isodense masses, pyelonephritis and ureteritis are not excluded on a noncontrast s tudy. Constipation pattern with a large amount of stool filling but not dilating the colon. Isodense masses and pyelonephritis are not excluded on stone protocol technique.
== END 2018-06-08 02:54 | disposition home or self-care (01) ==
LOC: ER 00:20
DX: N39.0 Urinary tract infection, site not specified (principal); K59.00 Constipation, unspecified; E03.9 Hypothyroidism, unspecified; G40.909 Epilepsy, unspecified, not intractable, without status epilepticus; F31.9 Bipolar disorder, unspecified; Z88.8 Allergy status to other drugs, medicaments and biological substances
CPT/HCPCS: 36415; 74176; 76377; 80048; 80076; 80178; 81003; 81015; 83690; 85025; 87086; 87088; 96361; 96374; 96375; 99284; J0696; J2550; J7030

== ENCOUNTER 2018-06-15 19:26 | Emergency (ER) | payer OTHER ==
--- OUTSIDE RECORDS SUMMARY | 2018-06-15 19:28 | XMS REPORT ---
:1995 [facility] Address [address] [place] [address] [address] [place] [address] Care Team Providers Name Role Phone Unavailable Unavailable Unavailable Problems This patient has no known problems. Allergies, Adverse Reactions, Alerts This patient has no known allergies or adverse reactions. Medications This patient has no known medications.
[2018-06-15 20:21] LABS: Urine Bacteria 20-50 /HPF (NONE SEEN); Urine Culture Reflex Order REFLEXED; Urine RBC TNTC /HPF (NONE SEEN)
[2018-06-15 21:22] LABS: Urine Blood 3+ (NEG); Urine Glucose NEGATIVE (NEG); Urine Protein 3+ (NEG); Urine Specific Gravity 1.015 (1.005-1.030); Urine pH 7.5 (5.0-7.0)
--- NOTE | 2018-06-15 21:47 | EDPHYS ---
Physician Documentation [facility] Name: Ronald Caicedo Age: 23 yrs Sex: Male : 1995 Arrival Date: 06/15/2018 Time: 19:28 Bed 15 Private MD: ED Physician Tanner Hernadez HPI: 06/15 21:44 This 23 yrs old Male presents to ER via Ambulatory with complaints of Blood gs In Urine. 21:44 The patient presents with urinary symptoms, dysuria. Onset: The symptoms/episode gs began/occurred today. Modifying factors: The symptoms are alleviated by nothing, the symptoms are aggravated by nothing. Associated signs and symptoms: Pertinent positives: hematuria. Severity of symptoms: At their worst the symptoms were moderate, in the emergency department the symptoms are unchanged. The patient has experienced similar episodes in the past, a few times. The patient has been recently seen at the [facility] Emergency Department, a couple of weeks ago, for similar complaints. Historical: - Allergies: 19:30 BENZODIAZEPINES; la1 19:30 Inderal; la1 19:30 Klonopin; la1 19:30 Zofran; la1 - PMHx: 19:30 adrenal insufficiency; Bipolar disorder; CYP2D6 deficiency; epilepsy; Heart Murmur; la1 Hypothyroidism; Left ventricular hypertrophy; Renal injury; Selective IgA; - Immunization history:: Adult Immunizations up to date. - Social history:: Smoking status: Patient/guardian denies using tobacco. - Ebola Screening: : No symptoms or risks identified at this time. ROS: 21:44 All other systems are negative. gs Exam: 21:44 Head/Face: Normocephalic, atraumatic. Eyes: Pupils equal round and reactive to light, gs extra-ocular motions intact. Lids and lashes normal. Conjunctiva and sclera are non-icteric and not injected. Cornea within normal limits. Periorbital areas with no swelling, redness, or edema. ENT: Nares patent. No nasal discharge, no septal abnormalities noted. Tympanic membranes are normal and external auditory canals are clear. Oropharynx with no redness, swelling, or masses, exudates, or evidence of obstruction, uvula midline. Mucous membranes moist. Neck: Trachea midline, no thyromegaly or masses palpated, and no cervical lymphadenopathy. Supple, full range of motion without nuchal rigidity, or vertebral point tenderness. No Meningismus. Chest/axilla: Normal chest wall appearance and motion. Nontender with no deformity. No lesions are appreciated. Cardiovascular: Regular rate and rhythm with a normal S1 and S2. No gallops, murmurs, or rubs. Normal PMI, no JVD. No pulse deficits. Respiratory: Lungs have equal breath sounds bilaterally, clear to auscultation and percussion. No rales, rhonchi or wheezes noted. No increased work of breathing, no retractions or nasal flaring. Abdomen/GI: Soft, non-tender, with normal bowel sounds. No distension or tympany. No guarding or rebound. No evidence of tenderness throughout. Back: No spinal tenderness. No costovertebral tenderness. Full range of motion. Skin: Warm, dry with normal turgor. Normal color with no rashes, no lesions, and no evidence of cellulitis. MS/ Extremity: Pulses equal, no cyanosis. Neurovascular intact. Full, normal range of motion. Neuro: Awake and alert, GCS 15, oriented to person, place, time, and situation. Cranial nerves II-XII grossly intact. Motor strength 5/5 in all extremities. Sensory grossly intact. Cerebellar exam normal. Normal gait. 21:44 Constitutional: The patient appears alert, awake. Vital Signs: 19:32 Pulse 83; Resp 18; Temp 98.8(O); Pulse Ox 100% on R/A; Weight 77.11 kg; Height 6 ft. 0 la1 in. (182.88 cm); Pain 5/10; 19:32 BP 128 / 77; la1 20:25 BP 115 / 73; Pulse 72; Resp 17 S; Pulse Ox 100% on R/A; cc3 21:38 BP 113 / 78; Pulse 71; Resp 18 S; Pulse Ox 100% on R/A; cc3 19:32 Body Mass Index 23.06 (77.11 kg, 182.88 cm) la1 MDM: 19:40 Patient medically screened. 21:44 Differential diagnosis: nonspecific abdominal pain, UTI, prostatitis. Data reviewed: vital signs, nurses notes. Counseling: I had a detailed discussion with the patient and/or guardian regarding: the historical points, exam findings, and any diagnostic results supporting the discharge/admit diagnosis, lab results, the need for outpatient follow up. Response to treatment: the patient's symptoms have mildly improved after treatment. 06/15 19:35 Order name: Urine Microscopic Only; Complete Time: 21:31 06/15 20:17 Order name: Urine Dipstick--Ancillary (enter results); Complete Time: 21:31 2 06/15 19:35 Order name: Urine Dipstick-Ancillary (obtain specimen); Complete Time: 20:06 06/15 20:24 Order name: Urine Culture EDMS Administered Medications: 21:46 Drug: Rocephin (cefTRIAXone) 1 grams Route: IM; Site: left gluteus; cc3 21:55 Follow up: Response: No adverse reaction cc3 Disposition: 06/15/18 21:46 Discharged to Home. Impression: Cystitis. - Condition is Stable. - Discharge Instructions: Urinary Tract Infection, Adult. - Prescriptions for Ceftin 500 mg Oral Tablet - take 1 tablet by ORAL route every 12 hours for 7 days; 14 tablet. - Medication Reconciliation Form, Thank You Letter, Antibiotic Education, Prescription Opioid Use form. - Follow up: Eva Rabago MD; When: 2 - 3 days; Reason: Re-evaluation by your physician. Signatures: Dispatcher [employer] EDNM Juventino Whitehead RN RN la1 Tanner Hernadez MD MD Valarie Ferrera cc3 Corrections: (The following items were deleted from the chart) 22:00 21:46 06/15/2018 21:46 Discharged to Home. Impression: Cystitis. Condition is Stable. cc3 Forms are Medication Reconciliation Form, Thank You Letter, Antibiotic Education, Prescription Opioid Use. Follow up: Eva Rabago; When: 2 - 3 days; Reason: Re-evaluation by your physician. gs
--- NOTE | 2018-06-15 21:47 | ER ---
Nurse's Notes [facility] Name: Ronald Caicedo Age: 23 yrs Sex: Male : 1995 Arrival Date: 06/15/2018 Time: 19:28 Bed 15 Private MD: Diagnosis: Cystitis Presentation: 06/15 19:30 Presenting complaint: Mother states: He was treated for kidney infection and stone here la1 last week, he was put on cipro but now he is having lower abd pain and passing gross blood in his urine. Transition of care: patient was not received from another setting of care. Onset of symptoms was June 15, 2018. Risk Assessment: Do you want to hurt yourself or someone else? Patient reports no desire to harm self or others. Initial Sepsis Screen: Does the patient meet any 2 criteria? No. Patient's initial sepsis screen is negative. Does the patient have a suspected source of infection? No. Patient's initial sepsis screen is negative. Care prior to arrival: None. 19:30 Method Of Arrival: Ambulatory la1 19:30 Acuity: KEMI 3 la1 Triage Assessment: 19:35 General: Appears in no apparent distress. comfortable, Behavior is calm, cooperative, cc3 appropriate for age. Pain: Complains of pain in on urination. Historical: - Allergies: 19:30 BENZODIAZEPINES; la1 19:30 Inderal; la1 19:30 Klonopin; la1 19:30 Zofran; la1 - PMHx: 19:30 adrenal insufficiency; Bipolar disorder; CYP2D6 deficiency; epilepsy; Heart Murmur; la1 Hypothyroidism; Left ventricular hypertrophy; Renal injury; Selective IgA; - Immunization history:: Adult Immunizations up to date. - Social history:: Smoking status: Patient/guardian denies using tobacco. - Ebola Screening: : No symptoms or risks identified at this time. Screenin:35 Abuse screen: Denies threats or abuse. Denies injuries from another. Nutritional cc3 screening: No deficits noted. Tuberculosis screening: No symptoms or risk factors identified. Fall Risk Ambulatory Aid- None/Bed Rest/Nurse Assist (0 pts). Gait- Normal/Bed Rest/Wheelchair (0 pts) Mental Status- Oriented to own ability (0 pts). Assessment: 19:35 General: Appears in no apparent distress. comfortable, Behavior is calm, cooperative, cc3 appropriate for age. 20:22 Reassessment: Patient appears in no apparent distress at this time. Patient and/or cc3 family updated on plan of care and expected duration. Pain level reassessed. Patient is alert, oriented x 3, equal unlabored respirations, skin warm/dry/pink. 21:55 Reassessment: Patient appears in no apparent distress at this time. Patient and/or cc3 family updated on plan of care and expected duration. Pain level reassessed. Patient is alert, oriented x 3, equal unlabored respirations, skin warm/dry/pink. Dr. Hernadez discharged the patient home with prescription given. No IV cannula in situ and patient left ER vitally stable and ambulatory with his mother. Vital Signs: 19:32 Pulse 83; Resp 18; Temp 98.8(O); Pulse Ox 100% on R/A; Weight 77.11 kg; Height 6 ft. 0 la1 in. (182.88 cm); Pain 5/10; 19:32 BP 128 / 77; la1 20:25 BP 115 / 73; Pulse 72; Resp 17 S; Pulse Ox 100% on R/A; cc3 21:38 BP 113 / 78; Pulse 71; Resp 18 S; Pulse Ox 100% on R/A; cc3 19:32 Body Mass Index 23.06 (77.11 kg, 182.88 cm) la1 ED Course: 19:28 Patient arrived in ED. am2 19:31 Triage completed. la1 19:31 Arm band placed on right wrist. la1 19:34 Tanner Hernadez MD is Attending Physician. gs 19:35 Peyman Christensen LVN is Primary Nurse. em 19:35 Patient has correct armband on for positive identification. Bed in low position. Call cc3 light in reach. Side rails up X 1. Pulse ox on. NIBP on. 21:46 Eva Rabago MD is Referral Physician. gs 21:55 No provider procedures requiring assistance completed. Patient did not have IV access cc3 during this emergency room visit. Administered Medications: 21:46 Drug: Rocephin (cefTRIAXone) 1 grams Route: IM; Site: left gluteus; cc3 21:55 Follow up: Response: No adverse reaction cc3 Outcome: 21:46 Discharge ordered by . gs 21:55 Discharged to home ambulatory, with family. cc3 21:55 Condition: stable 21:55 Discharge instructions given to patient, family, Instructed on discharge instructions, follow up and referral plans. medication usage, Demonstrated understanding of instructions, follow-up care, medications, Prescriptions given X 1. 22:00 Patient left the ED. cc3 Signatures: Peyman Christensen LVN SOFTWARE TEST AUTOMATION ENGINEER Juventino Finn RN RN la1 Adeola Angeles am2 Tanner Hernaedz MD MD gs Cordel, Charlene cc3 Corrections: (The following items were deleted from the chart) 21:40 21:38 Pulse 71bpm; Resp 18bpm; Spontaneous; Pulse Ox 100% RA; cc3 cc3
[2018-06-15] MEDS ORDERED: CEFTRIAXONE 1000 MG/VIAL ONE (21:52)
[2018-06-15] MEDS ORDERED: WATER FOR INJ,STERILE 10 ML ONE (21:52)
[2018-06-15 23:02] VITALS: TEMP 98.8; O2SAT 100
[2018-06-15 23:03] VITALS: BP 113/78
== END 2018-06-15 22:00 | disposition home or self-care (01) ==
LOC: ER 19:26
DX: N30.91 Cystitis, unspecified with hematuria (principal); Z88.5 Allergy status to narcotic agent; Z88.8 Allergy status to other drugs, medicaments and biological substances
CPT/HCPCS: 81003; 81015; 87086; 87088; 96372; 99283